=== PATIENT | male | born 1975 | race Caucasian/White ===

== ENCOUNTER → 2020-11-12 | Outpatient (CLI) | payer BC | LOC: CT 11-01 11:00 | DX: R16.2 Hepatomegaly with splenomegaly, not elsewhere classified (principal); R31.9 Hematuria, unspecified; R30.0 Dysuria; N30.01 Acute cystitis with hematuria | CPT/HCPCS: Q9967 ==

== ENCOUNTER 2022-02-14 02:00 | Emergency (ER) | payer OTHER ==
[~2022-02-14] VITALS: Ht 177.8 cm; Wt 90.7 kg
== END 2022-02-14 07:06 | disposition home or self-care (01) ==
LOC: ER1 02:00
DX: M54.2 Cervicalgia (principal); M54.50 Low back pain, unspecified; M54.6 Pain in thoracic spine; R11.0 Nausea; V49.9XXA Car occupant (driver) (passenger) injured in unspecified traffic accident, initial encounter; Y92.410 Unspecified street and highway as the place of occurrence of the external cause
CPT/HCPCS: 72125; 99283